=== PATIENT | male | born 2000 | race American Indian/Alaskan Native ===

== ENCOUNTER 2023-06-05 13:48 | Emergency (ER) | payer BC ==
[~2023-06-05] VITALS: Ht 193 cm; Wt 72.7 kg
[2023-06-05 14:10] VITALS: TEMP 98.2
[2023-06-05] MEDS ORDERED: Acetaminophen 500 MG TAB PO ONE (14:45)
[2023-06-05 17:19] VITALS: BP 132/99; PULSE 66
== END 2023-06-05 17:19 | disposition home or self-care (01) ==
LOC: COL.ER 13:48
DX: S52.042A Displaced fracture of coronoid process of left ulna, initial encounter for closed fracture (principal); Z23 Encounter for immunization; Y04.0XXA Assault by unarmed brawl or fight, initial encounter; Y93.39 Activity, other involving climbing, rappelling and jumping off